=== PATIENT | male | born 1965 | race Caucasian/White ===

== ENCOUNTER 2020-03-01 15:37 | Emergency (ER) | payer OTHER, SELFPAY ==
--- NOTE | ~2020-03-01 | XR_ITS ---
EXAMINATION: XR foot RT min 3V, XR ankle RT min 3V EXAM DATE: 03/01/2020 16:08 (accession [id number]), 03/01/2020 16:09 (accession [id number]) INDICATION: Initial encounter following injury, with pain of the right foot, ankle. TECHNIQUE: Right foot dorsoplantar, lateral and oblique projections obtained and reviewed. Right ank le frontal, lateral and oblique projections obtained and reviewed. There is no prior study for estefany burnett. FINDINGS: There is acute fracture through the base of the right medial malleolus with about 5 mm of d istraction. Closed, posttraumatic fracture . There is overlying soft tissue swelling. No other acut e findings. Mortise relationship appears maintained. Right metatarsal bones unremarkable. 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 IMPRESSION: 1. Acute right medial malleolar base fracture with mild distraction. Reviewed, dictated and finalized at location A. IMPRESSION: 1. Acute right medial malleolar base fracture with mild distraction.
[2020-03-01 15:45] VITALS: BP 110/80; PULSE 94; RESP 22; TEMP 37.2; O2SAT 98
--- NOTE | 2020-03-01 15:46 | ED.LOWEXIN ---
HPI - Extremity Injury (Lower) General Chief Complaint: Extremity Injury, Lower Stated Complaint: right ankle injury Time Seen by Provider: 03/01/20 15:46 Source: patient Mode of arrival: ambulatory Limitations: no limitations History of Present Illness HPI Narrative: Des Leon is a 54 yo male with a PMH of HTN, Stage 4 prostate CA, who caught his R foot getting out of truck and fell. Happened within the hour. States he thinks foot is broken, Related Data Home Medications Medication Instructions Recorded Confirmed amlodipine benzoate 03/01/20 metoprolol succinate 03/01/20 prednisone 03/01/20 Allergies Allergy/AdvReac Type Severity Reaction Status Date / Time lisinopril Allergy Other Verified 03/01/20 15:54 Review of Systems Review of Systems: Narrative: CONSTITUTIONAL: Denies fever, chills, sweats. EYES: Denies visual changes, redness, discharge. ENT: Denies rhinorrhea, congestion, sore throat, otalgia. CARDIOVASCULAR: Denies chest pain, palpitations, edema. RESPIRATORY: Denies dyspnea, wheezing, cough GASTROINTESTINAL: Denies abdominal pain, nausea, vomiting, diarrhea. GENITOURINARY: Denies dysuria, hematuria, abnormal discharge SKIN: Denies rash or itching. NEUROLOGIC: Denies numbness, or focal weakness. PSYCHIATRIC: Denies anxiety or depression. traumatic fall R ankle PMFSH Family History Family History Other Hypertension Social History Social History Smoking packs per day: 1.5 Smoking cigarettes per day: 30.0 Smoking status: Current every day smoker Alcohol intake: current Gender identity (if verbalized by the patient): Male Comments At time of signature, I agree with nursing past medical, surgical, social and family history. There is no relevant family history pertinent to the presenting complaint. Exam Narrative: Exam Narrative: GENERAL: This is a well-nourished, well-developed patient, in mild distress. afebrile, HEAD: normocephalic, atraumatic. EYES: Sclera clear/white. Vision is grossly intact. EARS: External ears normal, Hearing grossly intact. NOSE: External nose normal with nasal discharge, nares without redness, has rhinorrhea. THROAT: Mucous membranes moist, posterior pharynx mild erythema NECK: Neck supple, non-tender CARDIOVASCULAR: Regular rate and rhythm without murmurs, gallops, or rubs. RESPIRATORY: Clear to auscultation. Breath sounds equal bilaterally. No wheezes, rales, or rhonchi. Occ dry cough GASTROINTESTINAL: Abdomen soft, non-tender, SKIN: warm, intact with no suspicious lesions or rash, good texture and turgor. NEURO: awake, alert, and oriented to person, place and time. There were no obvious focal neurologic abnormalities. Steady gait EXTREMITIES: Normal range of motion on L right foot and ankle swollen with tenderness on medial side of right ankle 2+ pedal pulse minimal movement of toes, skin is warm. BACK: Nontender without deformity Course Course Emergency Course: X-ray -shows acute right medial malleoli are base fracture with 5 mm distraction Vital Signs Vital signs: Vital Signs Temperature 98.9 F 03/01/20 15:45 Pulse Rate 94 03/01/20 15:45 Respiratory Rate 22 H 03/01/20 15:45 Blood Pressure 110/80 03/01/20 15:45 Pulse Oximetry 98 03/01/20 15:45 Temperature 98.9 F 03/01/20 15:45 Pulse Rate 94 03/01/20 15:45 Respiratory Rate 22 H 03/01/20 15:45 Blood Pressure 110/80 03/01/20 15:45 Pulse Oximetry 98 03/01/20 15:45 Procedures Orthopedic Splinting/Casting Injury #1: Splinting/Casting Date: 03/01/20 Splinting/Casting Time: 16:26 Side: right Lower Extremity Immobilizer: stirrup splint Splint: customized in ED OCL: posterior Pre-Procedure Neuro Vascular Exam: normal Post-Procedure Neuro Vascular Exam: normal Other Orthopedic Equipment: crutche
== END 2020-03-01 17:00 | disposition home or self-care (01) ==
PROVIDERS: Emergency Provider Nurse Practitioner
DX: S82.51XA Displaced fracture of medial malleolus of right tibia, initial encounter for closed fracture (principal); W18.00XA Striking against unspecified object with subsequent fall, initial encounter; I10 Essential (primary) hypertension; F17.210 Nicotine dependence, cigarettes, uncomplicated; Z85.46 Personal history of malignant neoplasm of prostate
CPT/HCPCS: 29515; 73610; 73630; 99204; G0463

== ENCOUNTER 2025-07-29 16:53 | Emergency (ER) | payer SELFPAY ==
--- OUTSIDE RECORDS SUMMARY | 2025-07-29 16:57 | XMS_ITS | Encounter Summary ---
Author Organization [facility] Address [address] [place] [address] Phone Care Team Providers Care Hydro Mechanic Name Role Phone Sue Harris APRN, CNP Primary Care Provid er Jcarlos Cartagena MD Unavailable [phone] Wilbert Mishra MD Unavailable [phone] Osiel An MD Unavailable Encounter Details Date Type Department Care Team (Late st Contact Info) Description 07/21/2021 Telephone [facility] On[facility] [address] [place] [address] Osiel An MD [address] [place] [address] Social History Tobacco Use Types Packs/Day Years Used Date Smoking Tobacco: Every Day Cigarettes 1 36.9 Started: 1988 Smokeless Tobacco: Current Chew Comments: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 An. The patient informed me that he does not currently have active insurance. He will contact our office to reschedule his follow up and Lupron injection once he has his insurance worked out. documented in this encounter Plan of Treatment Not on file documented as of this encounter Visit Diagnoses Not on filedocumented in this encounter Additional Health Concerns Assessment Noted Time PHQ-9 Depression Total Score: 0 12/12/19 21 1:00 PM WRIST HEMMER documented as of this encounter Care Teams Hydro Mechanic Relationship Specialty Start Date End Date Sue Harris APRN, ASSOCIATE PROPERTY MANAGER [address] [address] PCP - General Advanced Practice Nurse 05/17/19 03/14/24 Jcarlos Cartagena MD [address] [address] Consulting Physician Urology 06/20/19 Wilbert Mishra MD [address] [address] Consulting Physician Radiation Oncology 06/20/19 Osiel An MD [address] [phone] Consulting Physician Medical Oncology 06/22/19 documented as of this encounter
--- OUTSIDE RECORDS SUMMARY | 2025-07-29 16:57 | XMS_ITS | Clinical Summary ---
Author Organization [facility] Address [address] [place] [address] Care Team Providers Care Maternal Fetal Physician Name Role Phone Unavailable Primary Care Provider Unavailabl e Source Comments [facility],non-owned Affiliates and Associated Physician Practices is amultiple site organization consisting of ambulatory clinics and hospital sitesin [place], [place], [place]. This disclosure is being madepursuant to the Care Everywhere program and may not contain all information available regarding this patient. Last updated 18.[facility] Allergies No known active allergies Medications * Be aware that medications may not be up to date on this document. Alwaysverify current medications with the patient. HYDROcodone-acet aminophen (NORCO) 5-325 MG tablet Take 1 Tab by mouth every 4 hours as needed for Pain 15 Tab 12/19/2016 Active ibuprofen (MOTRIN) 400 MG tablet Take 1 Tab by mouth every 4 hours as needed for Pain 20 Tab 12/19/2016 Active cyclobenzaprine (FLEXERIL) 10 MG tablet Take 1 Tab by mouth 3 times daily as needed for Muscle Spasms 15 Tab 12/19/2016 Active Social History Tobacco Use Types Packs/Day Years Used Date Smoking Tobacco: Every Day Alcohol Use Standard Drinks/Week Comments Yes 0 (1 standard drink = 0.6 oz pur e alcohol) Sex and Gender Information Value Date Recorded Sex Assigned at Not on file Legal Sex Male 8:05 AM SENIOR ENGINEERING MANAGER Gender Identity Not on file Sexual Orientation Not on file Last Filed Vital Signs Vital Sign Reading Time Taken Comments Blood Pressure 191/128 12/19/2016 11:05 AM SENIOR ENGINEERING MANAGER Pulse 87 12/19/2016 11:05 AM SENIOR ENGINEERING MANAGER Temperature 36.6 C (97.9 F) 12/19/2016 8:15 AM SENIOR ENGINEERING MANAGER Respiratory Rate 18 12/19/2016 9:32 AM SENIOR ENGINEERING MANAGER Oxygen Saturation 95% 12/19/2016 11:05 AM SENIOR ENGINEERING MANAGER Inhaled Oxygen Concentration - - Weight 63.5 kg (140 lb) 12/22/2016 9:27 AM SENIOR ENGINEERING MANAGER Height 160 cm (5' 3) 12/22/2016 9:27 AM SENIOR ENGINEERING MANAGER Body Mass Index 24.8 12/22/2016 9:27 AM SENIOR ENGINEERING MANAGER Plan of Treatment Health Maintenance Due Date Last Done Comments COLOGUARD (AGES 45-75) - COL ON CA SCREENING 1967 COLON MONITORING 1967 COLONOSCOPY - COLON CA SCREENING 1967 CT COLONOGRAPHY - COLON CA SCREENING 1967 Colorectal Cancer Screening 1967 FIT - COLON CA SCREENING 1967 FLEX SIG - COLON CA SCREENING 1967 LIPID TESTING 1967 HIV SCREENING 1982 HEPATITIS C SCREENING 08/28/1985 DTAP/TDAP/TD VACCINES (1 - Tdap) 1986 HEPATITIS B VACCINE (1 of 3 - 19+ 3-dose series) 1986 PNEUMOCOCCAL VACCINE 50+ (1 of 1 - PCV) 2017 ZOSTER VACCINE (1 of 2) 2017 COVID-19 VACCINE (1 - 2023-2 5 season) 2024 DEPRESSION SCREENING 11/28/2024 INFLUENZA VACCINE (#1) 2025 HIB VACCINE Aged Out No longer eligi ble based on patient's age to complete this topic HPV VACCINE Aged Out No longer eligi ble based on patient's age to complete this topic MENINGOCOCCAL (Group B) VACC INE SHARED DECISION-MAKING Aged Out No longer eligibl e based on patient's age to complete this topic MENINGOCOCCAL GROUPS A/C/Y/W VACCINE Aged Out No longer eligible b ased on patient's age to complete this topic [place] [address] [place] [address] [facility]
--- OUTSIDE RECORDS SUMMARY | 2025-07-29 16:57 | XMS_ITS | Encounter Summary ---
Author Organization [facility] Address [address] [place] [address] Phone Care Team Providers Care Drill Press Operator For Metal Name Role Phone Sue Harris APRN, CNP Primary Care Provid er Jcarlos Cartagena MD Unavailable [phone] Wilbert Mishra MD Unavailable [phone] Osiel An MD Unavailable [phone] Reason for Visit * Reason Comments Medication Refill Encounter Details Date Type Department Care Team (Late st Contact Info) Description 12/08/2020 Refill [facility] [address] [place] [address] Sue Harris APRN, MANAGEMENT TECHNICIAN [address] [address] Medication Refill Social History Tobacco Use Types Packs/Day Years Used Date Smoking Tobacco: Every Day Cigarettes 0.5 36.9 Started: 1988 Smokeless Tobacco: Current Chew Comments:Trying to quit toba public relations account executive products Alcohol Use Standard Drinks/Week Comments Yes 15 (1 standard drink = 0.6 oz pure alcohol) He typically will have a t all boy after work. 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 PER AND PRESERVER documented in this encounter Plan of Treatment Not on file documented as of this encounter Visit Diagnoses Diagnosis Essential hypertension Unspecified essential hypertension documented in this encounter Additional Health Concerns Assessment Noted Time PHQ-9 Depression Total Score: 0 05/15/20 19 5:00 PM CDT documented as of this encounter Care Teams Drill Press Operator For Metal Relationship Specialty Start Date End Date Sue Harris APRN, CNP [address] [phone] PCP - General Advanced Practice Nurse 05/17/19 03/14/24 Jcarlos Cartagena MD [address] [phone] Consulting Physician Urology 06/20/19 Wilbert Mishra MD [address] [address] Consulting Physician Radiation Oncology 06/20/19 Osiel An MD [address] [address] Consulting Physician Medical Oncology 06/22/19 documented as of this encounter
--- OUTSIDE RECORDS SUMMARY | 2025-07-29 16:57 | XMS_ITS ---
Author Organization [facility] Address [address] [place] [address] Phone Care Team Providers Care Tombstone Polisher Name Role Phone Jcarlos Cartagena MD Unavailable [phone] Wilbert Mishra MD Unavailable [phone] Osiel An MD Unavailable [phone] Active Problems Problem Noted Date Diagnosed Date Seasonal allergies 04/29/2020 Allergies 04/28/2020 Diarrhea 01/21/2020 Use of leuprolide acetate (Lupron) 01/21/2020 Drug-induced erectile dysfunction 01/21/2020 History of therapeutic radiation 11/12/2019 Overview (11/12/2019): Completed a course of prostate gland, pelvic lymph nodes and gross pelvic keyanna metastasis external beam radiotherapy 11/12/2019. Hot flashes 08/17/2019 Overview (11/12/2019): Secondary to long-term ADT initiated 07/12/2019 for prostate cancer. Prostate cancer 06/20/2019 Cancer Staging:Clinical stage from 06/20/2019:Stage RADHA(cT2c, cN1, cM0, PSA: 32, Grade Group: 5) - Signed by Wilbert Mishra MD on 06/21/2019 Overview (11/12/2019): Clinical stage RADHA ([id number], PSA 32 and Grade Group 5) adenocarcinoma the prostate. N1 on the basis of a 2 x 6 x 1.7 x 1.4 cm lymph node in the upper presacral region just to left of midline and a few smaller left pelvic lymph nodes. He was started on long-term ADT with Lupron 22.5 mg IM injection 07/12/2019 and late July 2019 was started on Zytiga 1000 mg p.o. along with prednisone 5 mg p.o. daily. He began a course of prostate gland, pelvic lymph nodes and gross pelvic keyanna metastasis external beam radiotherapy 09/10/2019 and completed 11/12/2019. The plan was to continue with Lupron, Zytiga and prednisone for a minimum of 2 years. Polycythemia 05/17/2019 High blood pressure 07/04/2017 Current Treatment and Therapy Plans SUPPORT - LEUPROLIDE* Plan Start Date:07/09/2019 Plan Provider:Osiel An MD Linked Problems Prostate cancer (HCC) Treatment Medications Current Day (Day 1, Cycle 8 - Planned for 04/20/2021) No medications scheduled. No medications schedul ed. Past Treatment and Therapy Plans No past plan information found. 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
[2025-07-29 16:58] VITALS: BP 117/90; PULSE 92; RESP 16; TEMP 36.1; O2SAT 97
--- NOTE | 2025-07-29 17:11 | ED.WOUNDLAC ---
HPI - Wound/Laceration General Chief Complaint: Wound/Laceration Stated Complaint: head lac Time Seen by Provider: 07/29/25 17:00 Source: patient and RN notes reviewed Mode of arrival: ambulatory Limitations: no limitations History of Present Illness HPI narrative: 59-year-old male presents Express Care complaining of laceration to the back of his head. Patient said approximately 24 hours ago he was sound sports smoking a cigarette when he was sitting up back on his bandage and the back of his head on the water meter. Patient denies any loss of consciousness. Patient denies any other injuries. Patient reports a mild headache that resolved with believe. Patient denies any neck pain, back pain, or any other injuries. Patient denies any dizziness, lightheadedness, seizures, increased lethargy, facial droop, slurred speech, vision changes, blurry vision, or any other symptoms. Patient says his tetanus is up-to-date. Patient denies taking any blood thinners. Related Data Allergies Allergy/AdvReac Type Severity Reaction Status Date / Time bee venom protein (honey bee) Allergy Unknown Unknown Verified 07/29/25 17:07 lisinopril Allergy Other Verified 07/29/25 17:07 Review of Systems Review of Systems: CONSTITUTIONAL: Denies fever, chills, or sweats. EYES: Denies visual changes, redness, or discharge. ENT: Denies rhinorrhea, congestion, sore throat, or otalgia. CARDIOVASCULAR: Denies chest pain, palpitations, dizziness, lightheadedness, or edema. RESPIRATORY: Denies cough or dyspnea. GASTROINTESTINAL: Denies abdominal pain, nausea, vomiting, or diarrhea. GENITOURINARY: Denies dysuria or hematuria. SKIN: Denies rash or itching. Positive for laceration. MUSCULOSKELETAL: Denies back pain, joint pain, or myalgia. NEUROLOGIC: Denies headache, numbness, loss of consciousness, seizures or weakness. PSYCHIATRIC: Denies anxiety or depression. All other systems reviewed are negative, except as documented in HPI. PMFSH Family History Family History Other Hypertension Social History Social History Smoking packs per day: 1.5 Smoking cigarettes per day: 30.0 Smoking status: Current every day smoker Alcohol intake: current Gender identity (if verbalized by the patient): Male Comments At the time of my signature, I reviewed and agree with the nursing past medical, surgical, social, and family history. There is no relevant family history pertinent to the patient complaint. Exam Narrative: GENERAL: This is a well-nourished, well-developed adult, in no apparent distress. They are non ill-appearing, nontoxic appearing. HEAD: normocephalic, atraumatic. No raccoon eyes or Thompson signs. EYES: Sclera clear/white. Conjunctiva normal. Vision is grossly intact. Extraocular movements intact. Pupils PERRLA EARS: External ears normal, auditory canals clear and without drainage, TMs normal without perforation. Hearing grossly intact. NOSE: External nose normal THROAT: Mucous membranes moist. NECK: Neck supple, non-tender without lymphadenopathy, masses or thyromegaly. No cervical point tenderness, crepitus, step-off. No midline tenderness. CARDIOVASCULAR: Regular rate and rhythm RESPIRATORY: Respiratory rate normal, respiratory effort nonlabored, no respiratory distress SKIN: There is a laceration present to the patient's scalp located on the right posterior parietal/occipital area. It is well approximated and scabbed over. It measures approximately 5 cm long. No area of fluctuance, no induration, no exudate. NEURO: awake, alert, and oriented to person, place and time. There were no obvious focal neurologic abnormalities. No pronator drift. No Facial droop. Tongue midline. Speech is clear. EXTREMITIES: No joint tenderness, effusion, or edema noted. BACK: Nontender without deformity. No CVA tenderness. No thoracic or lumbar point tenderness, crepitus or step-offs. Course Course Emergency Course: Portions of this record may have been created with voice recognition software Level of Care: Express Care Visit Vital Signs Vital signs: Vital Signs Temperature 97 F L 07/29/25 16:58 Pulse Rate 92 07/29/25 16:58 Respiratory Rate 16 07/29/25 16:58 Blood Pressure 117/90 07/29/25 16:58 Pulse Oximetry 97 07/29/25 16:58 Oxygen Delivery Room Air 07/29/25 16:58 Temperature 97 F L 07/29/25 16:58 Pulse Rate 92 07/29/25 16:58 Respiratory Rate 16 07/29/25 16:58 Blood Pressure 117/90 07/29/25 16:58 Pulse Oximetry 97 07/29/25 16:58 Oxygen Delivery Room Air 07/29/25 16:58 Reviewed MDM - Wound/Laceration MDM Narrative Medical decision making narrative: Patient has laceration it is already starting to close on the back of his scalp is older than 24 hours. No laceration repair is indicated at this time is to increase the risk of infection. Lacerations began to scabbed over. Wound was cleansed by nursing staff. [place] head CT score 0. No CT indicated. Low risk for significant head injury. Patient likely has mild concussion given his mild headache however well controlled with believe. Patient says his tetanus is up-to-date. Will prescribe prophylactic cephalexin to prevent infection. Discussed physical exam findings. Advised supportive measures and signs/symptoms to go to the ER. Pt is appropriate for outpt treatment and f/u. Differential Diagnosis Differential diagnosis: Likely laceration and other (Concussion, closed head injury, intracranial bleed) Critical Care Time Critical Care Time Critical Care Time: No Discharge Plan Discharge Clinical Impression: Laceration of head Qualifiers: Encounter type: initial encounter Location of open wound of head: scalp Foreign body presence: without foreign body Qualified Code(s): S01.01XA - Laceration without foreign body of scalp, initial encounter Concussion Qualifiers: Encounter type: initial encounter Loss of consciousness presence/duration: without LOC Qualified Code(s): S06.0X0A - Concussion without loss of consciousness, initial encounter Patient Disposition: Home Condition: Stable Instructions: Concussion (ED), Head Laceration (ED) Additional Instructions: Wash the wound daily with mild soap and water. May apply bacitracin or Vaseline to the wound. Take the cephalexin as directed. You may take ibuprofen 600 mg to 800 mg every 6-8 hours. Do not exceed more than 800 mg of ibuprofen per dose. Do not exceed more than 3200 mg ibuprofen in a day. You may take up to 1000 mg Tylenol every 6-8 hours. Do not exceed 1000 mg per dose, do exceed more than 4000 mg of Tylenol in a day. Follow-up PCP in 3-5 days. Go to the ER if you developed worsening redness, swelling, pain, fevers, green/yellow drainage, severe headaches, vision changes, loss of conscious, dizziness, lightheadedness, nausea, vomiting, chest pain, difficulty breathing, or any serious concerns. Patient Language: Amharic Prescriptions: New cephalexin 500 mg capsule 500 mg PO Q6H 5 Days Qty: 20 0RF Follow-up/Referrals: PHYSICIAN,GENERATOR SWITCHBOARD OPERATOR [Primary Care Provider, Internal Medicine] Time of Disposition: 17:09
== END 2025-07-29 17:17 | disposition home or self-care (01) ==
DX: S01.01XA Laceration without foreign body of scalp, initial encounter (principal); X58.XXXA Exposure to other specified factors, initial encounter; F17.210 Nicotine dependence, cigarettes, uncomplicated
CPT/HCPCS: 99213; G0463